=== PATIENT | male | born 1960 | race African-American/Black ===

== ENCOUNTER 2018-05-24 23:08 | Emergency (ER) | payer OTHER ==
[~2018-05-24] VITALS: Ht 188 cm; Wt 102.1 kg
[~2018-05-24 23:08] MED LIST: ANUSOL SUP1 SUPP.REC RC; ANUSOL-HC30 G2 RC
== END 2018-05-24 23:35 | disposition home or self-care (01) ==
LOC: ER 23:08
DX: H10.89 Other conjunctivitis (principal); B34.9 Viral infection, unspecified

== ENCOUNTER 2018-10-29 20:00 | Outpatient (CLI) | payer OTHER | END 2018-10-29 20:20 | disposition home or self-care (01) | LOC: LAB 20:00 | DX: Z11.3 Encounter for screening for infections with a predominantly sexual mode of transmission (principal) ==

== ENCOUNTER 2020-04-07 16:06 | Outpatient (CLI) | payer OTHER | END 2020-04-07 18:00 | disposition home or self-care (01) | LOC: PPH VACUNA 16:06 | DX: Z23 Encounter for immunization (principal) ==

== ENCOUNTER 2020-07-05 15:18 | Outpatient (CLI) | payer OTHER | END 2020-07-05 18:00 | disposition home or self-care (01) | LOC: PPH VACUNA 15:18 | DX: Z23 Encounter for immunization (principal) ==

== ENCOUNTER → 2020-07-25 02:27 | Outpatient (CLI) | payer OTHER | END | disposition home or self-care (01) | LOC: PPH VACUNA 02:27 | DX: Z23 Encounter for immunization (principal) ==

== ENCOUNTER 2020-11-03 17:00 | Outpatient (CLI) | payer OTHER | END 2020-11-03 17:06 | disposition home or self-care (01) | LOC: LAB 17:00 | DX: R05 Cough (principal); R53.83 Other fatigue ==

== ENCOUNTER 2021-04-17 08:00 | Outpatient (CLI) | payer OTHER | END 2021-04-17 08:30 | disposition home or self-care (01) | LOC: PPH VACUNA 08:00 | PROVIDERS: ATTEND Emergency Medicine Pediatric Emergency Medicine | DX: Z23 Encounter for immunization (principal) ==

== ENCOUNTER 2022-09-07 11:58 | Emergency (ER) | payer OTHER ==
[~2022-09-07] VITALS: Ht 182.9 cm; Wt 96.6 kg
[2022-09-07] MEDS ORDERED: KETO10TA2 PO (16:55)
[2022-09-07] MEDS ORDERED: TAMS0.4C PO (16:55)
== END 2022-09-07 17:03 | disposition home or self-care (01) ==
LOC: ER 11:58
DX: N20.0 Calculus of kidney (principal)

== ENCOUNTER 2022-09-19 08:47 | Outpatient (CLI) | payer OTHER ==
[~2022-09-19 08:47] MED LIST changes: +KETO10TA2 PO; +TAMS0.4C PO
== END 2022-09-19 15:40 | disposition home or self-care (01) ==
LOC: LAB 08:47
PROVIDERS: ATTEND Internal Medicine Cardiovascular Disease
DX: M54.59 Other low back pain (principal); B20 Human immunodeficiency virus [HIV] disease; A64 Unspecified sexually transmitted disease; E11.9 Type 2 diabetes mellitus without complications; E03.8 Other specified hypothyroidism; N39.0 Urinary tract infection, site not specified; N41.8 Other inflammatory diseases of prostate; I10 Essential (primary) hypertension; E78.1 Pure hyperglyceridemia; E78.00 Pure hypercholesterolemia, unspecified; Z80.1 Family history of malignant neoplasm of trachea, bronchus and lung

== ENCOUNTER 2022-09-21 15:12 | Outpatient (CLI) | payer OTHER | END 2022-09-21 15:15 | disposition home or self-care (01) | LOC: LAB 15:12 | PROVIDERS: ATTEND Internal Medicine Cardiovascular Disease | DX: B20 Human immunodeficiency virus [HIV] disease (principal); E78.00 Pure hypercholesterolemia, unspecified; E78.1 Pure hyperglyceridemia; I10 Essential (primary) hypertension; E03.9 Hypothyroidism, unspecified; E03.8 Other specified hypothyroidism; N39.9 Disorder of urinary system, unspecified; N41.9 Inflammatory disease of prostate, unspecified; Z80.0 Family history of malignant neoplasm of digestive organs; Z13.0 Encounter for screening for diseases of the blood and blood-forming organs and certain disorders involving the immune mechanism; Z12.11 Encounter for screening for malignant neoplasm of colon; A64 Unspecified sexually transmitted disease ==

== ENCOUNTER 2022-09-24 15:21 | Outpatient (CLI) | payer OTHER | END 2022-09-24 15:25 | disposition home or self-care (01) | LOC: LAB 15:21 | PROVIDERS: ATTEND Urology | DX: E03.8 Other specified hypothyroidism (principal); A64 Unspecified sexually transmitted disease; B20 Human immunodeficiency virus [HIV] disease; E11.9 Type 2 diabetes mellitus without complications; I10 Essential (primary) hypertension; N39.8 Other specified disorders of urinary system; N41.8 Other inflammatory diseases of prostate; Z80.1 Family history of malignant neoplasm of trachea, bronchus and lung; E78.1 Pure hyperglyceridemia; E78.00 Pure hypercholesterolemia, unspecified; Z13.0 Encounter for screening for diseases of the blood and blood-forming organs and certain disorders involving the immune mechanism; Z12.11 Encounter for screening for malignant neoplasm of colon; N20.0 Calculus of kidney; E29.1 Testicular hypofunction ==

== ENCOUNTER 2022-10-01 15:07 | Outpatient (CLI) | payer OTHER | END 2022-10-01 15:18 | disposition home or self-care (01) | LOC: LAB 15:07 | PROVIDERS: ATTEND Urology | DX: Z01.810 Encounter for preprocedural cardiovascular examination (principal); N20.0 Calculus of kidney; Z01.812 Encounter for preprocedural laboratory examination ==

== ENCOUNTER → 2023-03-15 17:16 | Outpatient (CLI) | payer OTHER | END | disposition home or self-care (01) | LOC: LAB 17:16 | PROVIDERS: ATTEND Emergency Medicine | DX: R53.81 Other malaise (principal) ==

== ENCOUNTER 2024-03-09 16:54 | Outpatient (CLI) | payer OTHER | END 2024-03-09 17:33 | disposition home or self-care (01) | LOC: LAB 16:54 | PROVIDERS: ATTEND Emergency Medicine | DX: R42 Dizziness and giddiness (principal) ==

== ENCOUNTER 2024-11-11 13:08 | Emergency (ER) | payer OTHER ==
[~2024-11-11] VITALS: Ht 188 cm; Wt 90.7 kg
[2024-11-11 14:35] LABS: HEMATOCRIT 37.2 % (39.0-48.0); HEMOGLOBIN 12.8 g/dL (13-16.00); MEAN CELL VOLUME 88.8 fL (80.0-100.00); MEAN CORPUSCULAR HEMOGLOBIN 30.6 pg (27.00-32.0); MEAN CORPUSCULAR HGB CONC 34.4 g/dl (32.0-36.0); PLATELET COUNT 201 K/uL (150-450); RED BLOOD COUNT 4.19 M/uL (4.00-6.00); RED CELL DISTRIBUTION WIDTH 13.3 % (11.5-14.5)
[2024-11-11 14:55] LABS: COVID-19 AG NEGATIVE (NEGATIVE)
[2024-11-11 15:00] LABS: INFLUENZA A AG POSITIVE (NEGATIVE)
== END 2024-11-11 15:35 | disposition home or self-care (01) ==
LOC: ER 13:08
PROVIDERS: General Practice
DX: J10.1 Influenza due to other identified influenza virus with other respiratory manifestations (principal); R53.81 Other malaise; Z20.822 Contact with and (suspected) exposure to COVID-19